=== PATIENT | female | born 1995 | race Caucasian/White ===

== ENCOUNTER 2017-03-11 18:39 | Emergency (ER) | payer BC, OTHER ==
[~2017-03-11] VITALS: Ht 154.9 cm; Wt 60.0 kg
[~2017-03-11 18:39] MED LIST: TYLENOL PRN
[2017-03-11 18:43] VITALS: Ht 154.9 cm; Wt 60.0 kg
[2017-03-11 19:31] LABS: ADD SCAN DIFF NO
[2017-03-11 19:36] LABS: BASOPHILS % 0.1 % (0.0-2.0); EOSINOPHILS % 0.4 % (0.0-7.0); HEMATOCRIT 38.9 % (37.0-47.0); HEMOGLOBIN 12.6 g/dl (12.0-16.0); LYMPHOCYTES % 25.4 % (18.0-55.0); MEAN CORPUSCULAR HEMOGLOBIN 26.8 pg (29.0-33.0); MEAN CORPUSCULAR HGB CONC 32.4 g/dl (32.0-37.0); MEAN CORPUSCULAR VOLUME 82.6 fl (72.0-104.0); MEAN PLATELET VOLUME 9.2 fl (7.4-10.4); MONOCYTE # 0.5 10^3/ul (0.3-0.9); MONOCYTES % 6.9 % (0.0-13.0); NEUTROPHIL # 5.1 10^3/ul (1.6-7.5); NEUTROPHILS % 66.7 % (30.0-74.0); PLATELET COUNT 421 10^3/UL (140-415); RED BLOOD COUNT 4.71 10^6/ul (4.20-5.40); RED CELL DISTRIBUTION WIDTH 14.3 % (11.5-14.5); WHITE BLOOD COUNT 7.7 10^3/ul (4.8-10.8)
--- NOTE | 2017-03-11 20:09 | ERD ---
ER Documentation Chief Complaint Date/Time DATE: 03/11/17 Chief Complaint Vaginal bleeding HPI The patient is a 21-year-old female who presents to the Emergency Department with complaint of vaginal bleeding. The patient reports that her menstrual cycle began on four days ago on 03/07/2017. Today, after using the bathroom, she noted passage of a large clot. She notes that she is sexually active, but for the past month has not been using any form of contraception. Therefore, when she passed the clot today, she became worried that she may have been , and decided to present to the ED for testing. She notes that her bleeding is mildly heavier than normal as well. She denies any headache, dysuria , flank pain, urinary frequency/urgency/hesitancy, dizziness, weakness, visual changes, pelvic pain, abdominal pain, vomiting, diarrhea, fevers, sweats, chills or new vaginal discharge. She is . Additionally, the patient notes that several of her family members are sick at home. Her mom was recently diagnosed with acute bronchitis. She notes a personal history of tobacco use, and a regular "smoker's cough" productive of thick, clear-colored sputum. However over the past 2 weeks she has been experiencing increasing cough, intermittent wheezing and yellow-colored sputum production. She denies chest pain, palpitations or shortness of breath. Denies fevers or chills. Denies recent travel, lower extremity swelling, calf swelling or calf tenderness. Denies recent surgeries. Patient is requesting x-ray imaging as well. She has not yet seen her primary medical provider regarding these symptoms. ROS All systems reviewed and are negative except as per history of present illness. Medications Home Meds Active Scripts Albuterol Sulfate* (Proair HFA*) 8.5 Gm Hfa.aer.ad, 2 PUFF INH Q6, #1 INHALER Prov:ANAND MARQUEZ PA-C 03/11/17 Azithromycin* (Zithromax*) 250 Mg Tablet, 250 MG PO .KrystianPACK DIRECTED, #6 TAB TAKE 500 MG (2 TABS) THE FIRST DAY THEN 250 MG (1 TAB) DAYS 2-5 Prov:ANAND MARQUEZ PA-C 03/11/17 Reported Medications [Tylenol Prn] No Conflict Check 11/15/09 Allergies Allergies: Coded Allergies: No Known Allergies (Verified Allergy, Mild, 03/11/17) PMhx/Soc History of Surgery: No Anesthesia Reaction: No Hx Neurological Disorder: No Hx Respiratory Disorders: No Hx Cardiac Disorders: No Hx Psychiatric Problems: No Hx Miscellaneous Medical Probl: No Hx Alcohol Use: Yes Hx Substance Use: No Hx Tobacco Use: Yes Physical Exam Vitals Vital Signs Date Time Temp Pulse Resp B/P Pulse Ox O2 Delivery O2 Flow Rate FiO2 03/11/17 21:22 98.4 77 17 126/76 99 Room Air 03/11/17 18:43 98.4 104 20 130/76 99 Physical Exam GENERAL: Well-developed, well-nourished, in no acute distress HEENT: Head is normocephalic, atraumatic. No scleral pallor or icterus. Pupils equal, round and reactive to light. Extraocular movements intact. Conjunctiva pink. Nares are patent bilaterally. Bilaterally tympanic membranes are clear with no evidence of erythema, effusion or dulling of the light reflex. Moist mucous membranes. No pharyngeal erythema or exudates. Uvula is midline. NECK: Supple. No masses, no tenderness, no lymphadenopathy. Trachea midline. No nuchal rigidity. Full range of motion. RESPIRATORY: Lungs are clear to auscultation bilaterally. Prolonged expiratory phase. No rales, rhonchi or wheezing. Equal breath sounds. Normal expiratory effort. CARDIOVASCULAR: Regular rate and rhythm. S1 and S2 normal. No murmurs, rubs, or gallops. GASTROINTESTINAL: Abdomen is soft, nontender, and nondistended. No guarding, no rebound tenderness. Normal bowel sounds. No gross peritonitis. FLANK: No CVA tenderness, no mass or swelling. BACK: Normal range of motion. EXTREMITIES: No clubbing, cyanosis, or edema. Normal skin perfusion. No calf swelling/tenderness. Moving all extremities. NEUROLOGIC: The patient is alert, awake, and oriented x 3. No focal neurologic deficits. INTEGUMENT: Skin is clean, dry and intact. No rashes, lesions or petechiae present. PSYCHIATRIC: Appropriate; Cooperative. Result Diagram: 03/11/171914 Results 24 hrs Laboratory Tests Test 03/11/17 19:15 White Blood Count 7.710^3/ul Red Blood Count 4.7110^6/ul Hemoglobin 12.6g/dl Hematocrit 38.9% Mean Corpuscular Volume 82.6fl Mean Corpuscular Hemoglobin 26.8pg Mean Corpuscular Hemoglobin Concent 32.4g/dl Red Cell Distribution Width 14.3% Platelet Count 00370^3/UL Mean Platelet Volume 9.2fl Neutrophils % 66.7% Lymphocytes % 25.4% Monocytes % 6.9% Eosinophils % 0.4% Basophils % 0.1% Nucleated Red Blood Cells % 0.0/100WBC Neutrophils # 5.110^3/ul Lymphocytes # 2.010^3/ul Monocytes # 0.510^3/ul Eosinophils # 0.010^3/ul Basophils # 0.010^3/ul Nucleated Red Blood Cells # 0.010^3/ul Serum HCG, Qualitative NEGATIVE Procedures/MDM DIAGNOSTIC TESTS AND INTERPRETATION: PROCEDURE: XR Chest. CLINICAL INDICATION: Productive cough. TECHNIQUE: PA and Lateral views of the chest were obtained. COMPARISON: None. FINDINGS:The cardiomediastinal silhouette is within normal limits. The lungs are clear. No signs of pleural fluid or pneumothorax are seen. The osseous structures and soft tissues are unremarkable. IMPRESSION:No evidence for active cardiopulmonary disease. Physician Violette Date Time Electronically viewed and signed by Physician Violette on 03/11/2017 20:54 LABS: CBC: No leukocytosis. H&H stable. No significant anemia. Beta hCG qualitative: Negative. Urine : Negative. SMOKING CESSATION: A discussion was held by me with the patient regarding smoking cessation. The risks of continued smoking, including hypertension, cardiac, cerebrovascular, and other end organ injury were discussed. Furthermore , the risk of emphysema, cancer, chronic bronchitis, and other pulmonary complications were emphasized. The risks and benefits of medical therapy including nicotine replacement therapy were discussed. The patient is strongly encouraged to pursue a smoking cessation program. Time spent in counseling 5 minutes. MEDICAL DECISION MAKING: This is a 21-year-old female presenting to the Emergency Department with complaint of vaginal bleeding with passage of a large clot today. The patient started her menstrual cycle 4 days ago. Abdominal examination benign. The differential includes, but is not limited to, , , ectopic , molar , ovarian cyst, PID, cervicitis, endometriosis, urinary tract infection, pyelonephritis, nephrolithiasis, appendicitis, dysfunctional uterine bleeding, uterine fibroids, endometriosis, endometrial polyps, cervical polyps, pelvic tumor, atrophic endometrium, hematologic disorder, trauma, foreign bodies, infections. The patient's hemoglobin and hematocrit are stable, no evidence of severe anemia. Beta hCG qualitative and urine negative. After rest, the patient reports no new complaints. She denies any dysuria, urinary symptoms or flank pain, no CVA tenderness, and therefore I doubt pyelonephritis or cystitis. Denies pelvic pain or new vaginal discharge, therefore I doubt cervicitis, PID, TOA. Patient' s vaginal bleeding is likely secondary to her menstrual cycle. As it is slightly heavier than normal, question possible menorrhagia. No evidence of at this time. Additionally, she notes two-week history of worsening productive cough of yellow -colored sputum. On physical examination the patient had a prolonged expiratory phase. No rales, wheezing or rhonchi were noted. She was afebrile, and had no retractions, no increased work of breathing, no nasal flaring, no accessory muscle use. She had no tachypnea, no signs of respiratory distress. Differential diagnosis includes, but is not limited to, pneumonia, pneumothorax , acute respiratory distress syndrome, sinusitis, pertussis, upper respiratory infection, asthma, allergic rhinitis, bronchitis, bronchiolitis, pertussis, croup, influenza, pharyngitis. No significant acute cardiopulmonary abnormalities were noted on the diagnostic chest x-ray performed. Patient's respiratory symptoms likely secondary to acute bronchitis, possibly bacterial in etiology. No evidence of acute sepsis, apnea, respiratory failure, dehydration, meningitis or other life-threatening etiology. At this time, the patient is in stable condition and not experiencing any current shortness of breath, wheezing or any signs of respiratory distress, and therefore she can be discharged home with a prescription for ProAir HFA and Z- cezar, and strict return precautions for signs of deteriorating or worsening condition. The patient is advised to follow up with her primary medical provider within 2-3 days for reevaluation and further management or return to the ER sooner for any worsening symptoms. I shared my medical decision making and plan with the patient at length and in great detail, and they verbally understand and agree with the plan for further observation and care as an outpatient. At the time of discharge all questions were answered. Departure Diagnosis: Primary Impression: Acute bronchitis Bronchitis organism: unspecified organism Qualified Code: J20.9 - Acute bronchitis, unspecified organism Additional Impression: Vaginal bleeding Condition: Stable Patient Instructions: Acute Bronchitis, Understanding the Normal Menstrual Cycle Additional Instructions: Call your primary care doctor TOMORROW for an appointment during the next 2-3 days.See the doctor sooner or return here if your condition worsens before your appointment time. ANAND MARQUEZ PA-C Mar 11, 2017 20:08
--- NOTE | 2017-03-11 20:55 | RADRPT ---
PROCEDURE: XR Chest. CLINICAL INDICATION: Productive cough. TECHNIQUE: PA and Lateral views of the chest were obtained. COMPARISON: None. FINDINGS: The cardiomediastinal silhouette is within normal limits. The lungs are clear. No signs of pleural f luid or pneumothorax are seen. The osseous structures and soft tissues are unremarkable. IMPRESSION: No evidence for active cardiopulmonary disease. RPTAT: [facility] Physician Violette Date Time Electronically viewed and signed by Roel Rai Physician on 03/11/2017 20:54 RS/
[2017-03-11] MEDS ORDERED: ALBU8.5H3 INH (21:12)
[2017-03-11] MEDS ORDERED: AZIT250T94 PO (21:12)
[2017-03-11 21:22] VITALS: BP 126/76; PULSE 77; RESP 17; TEMP 98.4
== END 2017-03-11 21:24 | disposition home or self-care (01) ==
LOC: FTE 18:39
DX: J20.9 Acute bronchitis, unspecified (principal); Z87.891 Personal history of nicotine dependence
CPT/HCPCS: 71020; 84703; 85025

== ENCOUNTER 2017-11-13 00:32 | Emergency (ER) | payer SELFPAY ==
[~2017-11-13 00:32] MED LIST changes: +ALBU8.5H3 INH; +AZIT250T94 PO
== END 2017-11-13 02:30 | disposition left against medical advice (07) ==
LOC: E/R 00:32
DX: Z53.21 Procedure and treatment not carried out due to patient leaving prior to being seen by health care provider (principal)

== ENCOUNTER 2018-11-05 22:15 | Emergency (ER) | END 2018-11-05 23:18 | disposition home or self-care (01) ==

== ENCOUNTER 2019-03-04 13:36 | Emergency (ER) | payer OTHER ==
[~2019-03-04] VITALS: Ht 157.5 cm; Wt 50.0 kg
[~2019-03-04 13:36] MED LIST changes: -ALBU8.5H3 INH; +ALBU8.5H8 INH; +AZIT250T PO; -AZIT250T94 PO; +CLOT30CR24 TOP; +TRIA15CR55 TOP
[2019-03-04 15:33] VITALS: BP 126/80; PULSE 85; RESP 20; Ht 157.5 cm; Wt 50.0 kg
[2019-03-04] MEDS ORDERED: METR500T PO (16:36)
[2019-03-04] MEDS ORDERED: NITR-58 PO (16:36)
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
== END 2019-03-04 16:56 | disposition home or self-care (01) ==
LOC: FTE 13:36
DX: N94.9 Unspecified condition associated with female genital organs and menstrual cycle (principal)
CPT/HCPCS: 81001; 81025; 87591; Z7502; 81003; 99284

== ENCOUNTER 2019-03-28 14:39 | Emergency (ER) | payer OTHER ==
[~2019-03-28] VITALS: Ht 152.4 cm; Wt 61.8 kg
[~2019-03-28 14:39] MED LIST changes: +METR500T PO; +NITR-58 PO
[2019-03-28 15:02] VITALS: Ht 152.4 cm; Wt 61.8 kg
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
[2019-03-28] MEDS ORDERED: IBUP-1561 PO (18:21)
[2019-03-28] MEDS ORDERED: SULF1TAB31 PO (18:21)
[2019-03-28] MEDS ORDERED: TRIMETHOPRIM/SULFAMETHOX (DS) TAB PO ONE (18:30)
[2019-03-28] MEDS ORDERED: METR500T PO (19:22)
[2019-03-28 19:45] VITALS: BP 138/88; PULSE 77; RESP 18
== END 2019-03-28 19:46 | disposition home or self-care (01) ==
LOC: FTE 14:39
DX: N75.0 Cyst of Bartholin's gland (principal); N76.0 Acute vaginitis
CPT/HCPCS: 81001; 81025; 87086; 87210; 87591; Z7502; Z7610; 99284